=== PATIENT | male | born 1990 ===

== ENCOUNTER → 2021-08-12 | Day surgery (SDC) | payer OTHER ==
[~2021-08-12] VITALS: Ht 172.7 cm; Wt 89.3 kg
[~2021-08-12] MED LIST: MOTRIN600 MG PO
[2021-08-12 09:59] LABS: BASOPHIL 0.7 % (0-2); EOSINOPHIL 1.3 % (0-5); HCT 47.6 % (42.0-52.0); HGB 15.7 g/dl (13.2-18.0); MCV 87.8 fL (78.0-100.0); MONOCYTE 7.6 % (0-12); MPV 10.9 fL (6.0-9.5); NEUTROPHIL 55.2 % (41-80); NRBC 0; PLT 258 K/uL (150-400); RBC 5.42 M/uL (4.70-6.00); RDW 13.6 % (11.5-14.0); WBC 9.4 K/uL (4.0-10.5)
== END | disposition home or self-care (01) ==
LOC: FAS 08:00
PROVIDERS: Oral & Maxillofacial Surgery
DX: K02.9 Dental caries, unspecified (principal); K04.7 Periapical abscess without sinus; K01.1 Impacted teeth
CPT/HCPCS: 36415; 85025; J1100; J2250; J2405; J2704; J2710; J3010; J7120